=== PATIENT | male | born 1980 | race Caucasian/White ===

== ENCOUNTER 2017-03-28 18:41 | Inpatient (IN) ==
[2017-03-28] MEDS ORDERED: Ipratropium/Albuterol Neb 3 ML IH ONE (18:48)
[2017-03-28] MEDS ORDERED: Magnesium Sulfate 1 GM in D5% in Water 100 ML IVPB ONE ×2 (18:49→19:45)
[2017-03-28] MEDS ORDERED: *HR* LORazepam 2 MG/ML VIAL IVP ONE (18:49)
--- NOTE | 2017-03-28 19:08 | Emergency Department Note ---
Disposition Clinical Impression: Asthma with exacerbation Qualifiers: Asthma severity: moderate Asthma persistence: unspecified Qualified Code(s): J45.901 - Unspecified asthma with (acute) exacerbation Disposition: Admitted As Inpatient Condition: Good Referrals: NONE,PCP [Primary Care Provider] - Forms: ED Satisfaction Letter Time of Disposition: 20:07 General Adult HPI - General Chief complaint: ED Shortness of Breath/Dyspnea Stated complaint: SOB/anxiety Time Seen by Provider: 03/28/17 18:48 Source: patient, EMS Limitations: no limitations Nursing Notes Reviewed: Yes Vital Signs Reviewed: Yes - History of Present Illness HPI Narrative: Patient is a 37-year-old male that presents the emergency department for respiratory symptoms. He states that he has a history of asthma like he is having an asthma attack. He states that he has been having worsening of shortness of breath all day. He states that he has uses inhalers and nebulizers without any relief. Patient came via EMS and received 3 nebulized treatments in the squad and that improved his oxygen saturation. Patient states that he is still feeling like he cannot catch his breath or breathe. He states that this is worse than any other asthma attack that he has ever had. Pain Scale: 6 - Related Data Home Medications Medication Instructions Recorded Confirmed Albuterol Sulfate [Proair HFA] 1 puff IH 11/23/14 11/23/14 Previous Rx's Medication Instructions Recorded Naproxen [Naprosyn] 500 mg PO BID PRN #15 tablet 07/22/16 Azithromycin [Zithromax] 250 - 500 mg PO DAILY #6 tablet 03/19/17 Promethazine/Dextromethorphan 5 ml PO Q4-6H PRN #120 ml 03/19/17 [Promethazine-Dm Syrup] predniSONE [PredniSONE] 40 mg PO DAILY #10 tablet 03/19/17 Allergies Allergy/AdvReac Type Severity Reaction Status Date / Time No Known Drug Allergies Allergy See Verified 07/22/16 09:58 Comments All systems ED: reviewed and negative except as stated. Respiratory: Reports: other (Short of breath, the difficulty breathing) Past Medical History - Past Medical History Medical history: Reports: asthma Psychiatric history: Reports: no psych history - Social History Smoking Status: Former smoker Smokeless Tobacco Status: Yes Alcohol use: Reports: occasionally Drug use: Reports: marijuana Physical Exam - General Limitations: no limitations General appearance: alert, in distress - Head Head exam: atraumatic, normocephalic - Eye Eye exam: Present: normal appearance, EOMI - Neck Neck exam: Present: normal inspection, full ROM, trachea midline - Respiratory Respiratory exam: Present: normal lung sounds bilaterally, wheezes (Wheezes bilaterally), other (Patient appears to be hyperventilating). Absent: respiratory distress - Cardiovascular Cardiovascular exam: Present: normal rhythm, tachycardia, normal heart sounds, + S1, +S2 - Abdominal Exam Abdominal exam: Present: soft, Non-Tender, normal bowel sounds - Neurological Exam Neurological exam: Present: alert, oriented X3 - Psychiatric Psychiatric exam: Present: normal affect, normal mood - Skin Skin exam: Present: warm, dry, intact Course - Reevaluation(s) Reevaluation #1: re-evaluated patient on RA and we dropped to 88% on RA at rest, we will admit to medicine and continue with magensium treatment. Panchito has been informed that he will be admitted to medicine and he is agreeable to plan. Time: 20:07 - Consultations Consultation #1: discssed case with Dr. Luis and he has accepted patient to medicine. Time: 20:30 Vital Signs Temperature 97.4 F L 03/28/17 18:44 Pulse Rate 107 03/28/17 18:44 Respiratory Rate 20 03/28/17 18:44 Blood Pressure 165/103 03/28/17 18:44 O2 Sat by Pulse Oximetry 89 03/28/17 18:44 Temperature 97.4 F L 03/28/17 18:44 Pulse Rate 107 03/28/17 18:44 Respiratory Rate 16 03/28/17 19:39 Blood Pressure 165/103 03/28/17 18:44 O2 Sat by Pulse Oximetry 93 03/28/17 19:39 Oxygen Delivery Oxygen Delivery Nasal Cannula Medical Decision Making - [facility] Narrative Medical decision making narrative: Due to the patient having shortness of breath and difficulty with breathing we will do a CBC, BMP, troponin, x-ray, EKG. The patient will also be giving a breathing treatment, magnesium and a dose of Ativan. Chest x-ray showed no acute process. Patient states that after receiving Ativan he is feeling much better and his breathing has improved. Patient does have an elevated white count of 18,000. This could be due to inflammatory process due to the patient having an exacerbation of his asthma. - Lab Data Lab results reviewed: Yes I reviewed the patient's lab results. Result diagrams: 03/28/17 19:06 03/28/17 19:06 Lab Results 03/28/17 03/28/17 03/28/17 Range/Units 19:06 19:06 19:06 WBC 18.0 H (4.3-11.1) K/mcL RBC 5.61 H (4.19-5.50) M/mcL Hgb 16.8 (12.9-16.9) g/dL Hct 51.0 H (37.5-50.1) % MCV 90.9 (83.0-100.0) fL MCH 29.9 (28.0-33.3) pg MCHC 32.9 (31.6-35.5) g/dL RDW 13.6 (11.5-14.5) % Plt Count 313 (140-400) K/mcL MPV 8.9 L (9.4-12.4) fL Immature Gran % 0.7 (0-4) % Seg Neutrophils % 81.8 % Lymphocytes % 7.7 % Monocytes % 5.8 % Eosinophils % 3.6 % Basophils % 0.4 % Neutrophils # 14.7 H (1.6-8.9) K/mcL Lymphocytes # 1.4 (0.6-4.6) K/mcL Monocytes # 1.1 (0.0-1.3) K/mcL Eosinophils # 0.7 H (0.0-0.6) K/mcL Basophils # 0.1 (0.0-0.2) K/mcL Sodium 143 (136-145) mEq/L Potassium 4.3 (3.5-5.1) mEq/L Chloride 104 (98-107) mEq/L Carbon Dioxide 31 H (23-29) mEq/L BUN 9 (6-20) mg/dL Creatinine 0.90 (0.70-1.30) mg/dL Est GFR ( Amer) > 60 (> 60) Est GFR (Non-Af Amer) > 60 (> 60) BUN/Creatinine Ratio 10 (6-26) Glucose 112 H (70-105) mg/dL Calculated Osmolality 295 (280-300) Calcium 9.8 (8.6-10.3) mg/dL Troponin I < 0.03 (< 0.04) ng/mL - Radiology Data Radiology results reviewed: Yes I reviewed the patient's radiology results. Chest X-Ray 03/28/17 18:48 IMPRESSION: No acute process. D/ / Parveen Luque MD / Parveen Luque MD Interpreting Provider: Parveen Luque MD - EKG Data EKG #1 EKG attestation: Yes I reviewed and interpreted this EKG. EKG results narrative: sinus tachycardia wih rate of 105. NO STEMI. normal inervall. no old ekg
--- NOTE | 2017-03-28 19:19 | Emergency Department Note ---
START Narrative - START START: I examined this patient and my medical decision-making was reviewed with the Resident Physician. I agree with the documented findings, disposition and treatment plan as described except to the extent set forth below. 37 brittany old male present to the ED with astham excbeartion v anxiety attack and hyperventilating and tripoding to the point that he is making himself hypoxic to 83%. He has had 5 breathign treatments and is refusing to wear NC due to his anxiety and through some breathign excercised and coaching he is able to calm down and his oxygenation has increaaed to 96% on 2LNC. He has been treated with steroids by [facility]. We will treat him with magnesium and ativan for therapy. We will do a walk test to test for hypoxia/tachycardia.
[2017-03-28 19:25] LABS: Basophils # 0.1 K/mcL (0.0-0.2); Basophils % 0.4 %; Eosinophils # 0.7 K/mcL (0.0-0.6); Eosinophils % 3.6 %; Hemoglobin 16.8 g/dL (12.9-16.9); Immature Granulocytes % 0.7 % (0-4); Lymphocytes # 1.4 K/mcL (0.6-4.6); Lymphocytes % 7.7 %; Mean Corpuscular HGB Conc 32.9 g/dL (31.6-35.5); Mean Corpuscular Hemoglobin 29.9 pg (28.0-33.3); Mean Corpuscular Volume 90.9 fL (83.0-100.0); Mean Platelet Volume 8.9 fL (9.4-12.4); Monocytes # 1.1 K/mcL (0.0-1.3); Monocytes % 5.8 %; Neutrophils # 14.7 K/mcL (1.6-8.9); Platelet Count 313 K/mcL (140-400); Red Blood Count 5.61 M/mcL (4.19-5.50); Red Cell Distribution Width 13.6 % (11.5-14.5); Segmented Neutrophils % 81.8 %
[2017-03-28 19:41] LABS: BUN/Creatinine Ratio 10 (6-26); Blood Urea Nitrogen 9 mg/dL (6-20); Calcium 9.8 mg/dL (8.6-10.3); Carbon Dioxide 31 mEq/L (23-29); Chloride 104 mEq/L (98-107); Glucose 112 mg/dL (70-105); Osmolality,Calculated 295 (280-300); Potassium 4.3 mEq/L (3.5-5.1); Sodium 143 mEq/L (136-145); eGFR For African Americans > 60 (> 60); eGFR For Non-African Americans > 60 (> 60)
[2017-03-28] MEDS ORDERED: Levofloxacin 750 MG/150 ML 750 MG/150 ML BAG IVPB ONE (20:07)
[2017-03-28] MEDS ORDERED: Ondansetron 4 MG/2 ML VIAL IVP PRN (23:03)
[2017-03-28] MEDS ORDERED: Naloxone 0.4 MG/ML INJ IVP PRN (23:03)
[2017-03-28] MEDS ORDERED: Ipratropium/Albuterol Neb 3 ML IH PRN (23:04)
[2017-03-28] MEDS: Ipratropium/Albuterol Neb 3 ML IH SCH (23:34)
[2017-03-29] MEDS: MethylPREDNISolone 40 MG/ML VIAL IVP SCH ×4 (00:30→22:40)
--- NOTE | 2017-03-29 00:43 | Internal Med History&Physical ---
Date of Encounter: 03/29/17 Time of Encounter: 00:10 Assessment and Plan (1) Asthma with exacerbation Current visit: Yes Status: Acute Acute respiratory distress secondary to asthma exacerbation continue IV steroids, bronchodilator support, O2 supplementation empiric abx obtain respiratory viral panel will closely monitor O2 saturation Ativan 1mg IV prn severe anxiety Qualifiers: Asthma severity: moderate Asthma persistence: unspecified Qualified Code( s): J45.901 - Unspecified asthma with (acute) exacerbation (2) DVT prophylaxis Current visit: Yes Status: Acute heparin SQ early ambulation Internal Medicine - H&P: HPI Chief complaint: shortness of breath Admitted From: Home Plans for Post Hospital Care: Home History of present illness: Mr. Smith is a 37 year old male with PMH of asthma who presented to the ER for worsening shortness of breath. Pt reports of recently being treated for URI/Flu and finished a course of abx and steroids four days ago. Pt states he woke up this morning with chest congestion and difficulty breathing. He did not get any relief from his rescue inhalers which prompted his visit to the ER. In the ER, he was noted to be hypoxic, requiring O2 supplementation. He was also noted to be severely anxious and hyperventilating, which worsened his symptoms. He received ativan 1mg IV, Solumedrol 125mg IV, O2 support, duonebs which improved his symptoms. He is currently saturating well on 4L NC, reports improvement in his symptoms since arrival to the hospital. Pt is not on home oxygen. Denies any fever, chills, or cough at this time. Social Hx: Former smoker Past Med Surg Social Fam HX - Past Medical History Medical history: asthma Psychiatric history: no psych history - Social History Smoking Status: Former smoker Smokeless Tobacco Status: Yes Alcohol use: occasionally Drug use: marijuana - Family History Mother Living Status: Still Living Hx Family Respiratory Disorders: Yes (COPD, emphysema) Internal Medicine - H&P: Meds Albuterol Sulfate [Proair HFA] 2 puff IH Q2-4H PRN 11/23/14 [History] 3 Allergy/AdvReac Type Severity Reaction Status Date / Time No Known Drug Allergies Allergy See Verified 07/22/16 09:58 Comments All Systems PM: A 10-system review of systems was performed and is negative for pertinent findings except as documented above in the HPI. - Constitutional Constitutional: as per HPI - Constitutional Vitals: Temp Pulse Resp BP Pulse Ox 97.8 F 110 20 102/97 93 03/28/17 23:06 03/28/17 23:06 03/28/17 23:35 03/28/17 23:06 03/28/17 23:35 General appearance: Present: A&O X 3, no acute distress, answers questions appropriately - Head Head exam: Present: atraumatic, normocephalic - Eye Eye exam: Present: conjuntiva pink, sclera anicteric - Respiratory Respiratory exam: Absent: respiratory distress, wheezes (decreased breath sounds , equal air entry bilaterally ) - Cardiovascular Cardiovascular exam: Present: +S1, +S2, tachycardia. Absent: diastolic murmur, systolic murmur - GI/Abdominal GI/Abdominal exam: Present: normal bowel sounds, soft, no peritoneal signs. Absent: distended, tenderness - Extremities Exam Extremities exam: Present: warm, radial pulses palpable and symmetrical. Absent : calf tenderness, cyanotic, pedal edema - Neurological Exam Neurological exam: Present: alert, oriented X3 Internal Med - H&P Results - Labs CBC & Chem 7: 03/28/17 19:06 03/28/17 19:06
[2017-03-29] MEDS: Ipratropium/Albuterol Neb 3 ML IH SCH ×5 (03:58→20:20)
[2017-03-29 04:50] LABS: Adenovirus Not Detected (Not Detect); Bordetella Pertussis Not Detected (Not Detect); Chlamydophila pneumoniae Not Detected (Not Detect); Coronavirus 229E Not Detected (Not Detect); Coronavirus HKU1 Not Detected (Not Detect); Coronavirus NL63 Not Detected (Not Detect); Coronavirus OC43 Not Detected (Not Detect); Human Metapneumovirus Not Detected (Not Detect); Human Rhinovirus/Enterovirus Not Detected (Not Detect); Influenza A Subtype 2009 H1 Not Detected (Not Detect); Influenza A Untypeable Not Detected (Not Detect); Influenza B Not Detected (Not Detect); Mycoplasma pneumoniae Not Detected (Not Detect); Parainfluenza Virus 1 Not Detected (Not Detect); Parainfluenza Virus 2 Not Detected (Not Detect); Parainfluenza Virus 3 Not Detected (Not Detect); Parainfluenza Virus 4 Not Detected (Not Detect); Respiratory Syncytial Virus Not Detected (Not Detect)
[2017-03-29 05:11] LABS: Basophils % 0.3 %; Eosinophils % 0.1 %; Hematocrit 47.4 % (37.5-50.1); Hemoglobin 15.6 g/dL (12.9-16.9); Immature Granulocytes % 0.4 % (0-4); Lymphocytes # 0.5 K/mcL (0.6-4.6); Lymphocytes % 7.2 %; Mean Corpuscular HGB Conc 32.9 g/dL (31.6-35.5); Mean Corpuscular Hemoglobin 29.5 pg (28.0-33.3); Mean Corpuscular Volume 89.6 fL (83.0-100.0); Mean Platelet Volume 9.1 fL (9.4-12.4); Monocytes # 0.1 K/mcL (0.0-1.3); Monocytes % 1.6 %; Neutrophils # 6.8 K/mcL (1.6-8.9); Platelet Count 288 K/mcL (140-400); Red Blood Count 5.29 M/mcL (4.19-5.50); Red Cell Distribution Width 13.8 % (11.5-14.5); Segmented Neutrophils % 90.4 %
[2017-03-29 05:32] LABS: BUN/Creatinine Ratio 14 (6-26); Blood Urea Nitrogen 12 mg/dL (6-20); Calcium 9.5 mg/dL (8.6-10.3); Carbon Dioxide 27 mEq/L (23-29); Chloride 103 mEq/L (98-107); Glucose 140 mg/dL (70-105); Osmolality,Calculated 286 (280-300); Phosphorous 1.4 mg/dL (2.7-4.5); Potassium 4.6 mEq/L (3.5-5.1); Sodium 137 mEq/L (136-145); eGFR For African Americans > 60 (> 60); eGFR For Non-African Americans > 60 (> 60)
[2017-03-29] MEDS: Pantoprazole 40 MG VIAL IVP SCH (06:58)
[2017-03-29] MEDS: *HR* Heparin 5,000 UNIT/ML VIAL SQ SCH ×3 (07:00→22:40)
[2017-03-29] MEDS: Acetaminophen 325 MG TABLET PO PRN ×2 (10:13→16:47)
[2017-03-29] MEDS: cefTRIAXone 1,000 MG in Water for inj. (sterile) 20 ML 10 ML IVPB SCH (11:35)
[2017-03-29] MEDS: *HR* LORazepam 2 MG/ML VIAL IVP PRN (18:06)
[2017-03-29] MEDS ORDERED: levoFLOXacin 750 MG TABLET PO SCH (21:00)
[2017-03-30] MEDS: Ipratropium/Albuterol Neb 3 ML IH SCH ×6 (00:44→20:14)
[2017-03-30] MEDS: *HR* Heparin 5,000 UNIT/ML VIAL SQ SCH ×3 (05:40→21:43)
[2017-03-30] MEDS: Pantoprazole 40 MG VIAL IVP SCH (05:40)
[2017-03-30] MEDS: cefTRIAXone 1,000 MG in Water for inj. (sterile) 20 ML 10 ML IVPB SCH (07:25)
[2017-03-30] MEDS: MethylPREDNISolone 40 MG/ML VIAL IVP SCH ×2 (07:26→15:17)
--- NOTE | 2017-03-30 09:24 | Internal Med Progress Note ---
Date of Encounter: 03/30/17 Time of Encounter: 09:21 - Assessment and plan (1) Asthma with exacerbation Current Visit: Yes Status: Acute Assessment and plan: Acute hypoxic respiratory failure secondary to acute asthma exacerbation with possible acute COPD exacerbation (never diagnosed) provoked by acute bronchitis possibly bacterial Continue Rocephin day 2 Continue Solu-Medrol IV, oxygen therapy and DuoNeb's May require oxygen therapy at home, will pulmonary function tests in 4-6 weeks Qualifiers: Asthma severity: moderate Asthma persistence: unspecified Qualified Code( s): J45.901 - Unspecified asthma with (acute) exacerbation (2) Acute respiratory failure with hypoxia Current Visit: Yes Status: Acute (3) COPD (chronic obstructive pulmonary disease) Current Visit: Yes Status: Acute Qualifiers: COPD type: chronic bronchitis Chronic bronchitis type: simple Qualified Code(s): J41.0 - Simple chronic bronchitis (4) Quit using tobacco in remote past Current Visit: Yes Status: Acute (5) Acute bronchitis Current Visit: Yes Status: Acute Qualifiers: Bronchitis organism: unspecified organism Qualified Code(s): J20.9 - Acute bronchitis, unspecified - Subjective Interval history: Feeling less short of breath, still requiring 4 L of oxygen, tachycardic, denies any chest pain, no fevers, no abdominal pain or dysuria - Constitutional Vitals: Temp Pulse Resp BP Pulse Ox 98.0 F 117 20 124/87 95 03/30/17 07:33 03/30/17 07:33 03/30/17 07:33 03/30/17 07:33 03/30/17 07:33 General appearance: Present: A&O X 3, no acute distress, answers questions appropriately - Head Head exam: Present: atraumatic, normocephalic - Eye Eye exam: Present: PERRL, conjuntiva pink, sclera anicteric Pupils: Present: PERRL - Neck Neck exam general surgery: Present: supple, trachea midline. Absent: lymphadenopathy - Respiratory Respiratory exam: Present: decreased breath sounds, CTAB, wheezes (Minimal diffuse wheezing). Absent: accessory muscle use, rales, rhonchi - Cardiovascular Cardiovascular exam: Present: RRR, +S1, +S2. Absent: diastolic murmur, gallop, rubs, systolic murmur - GI/Abdominal GI/Abdominal exam: Present: normal bowel sounds, soft, no peritoneal signs. Absent: distended, tenderness - Extremities Exam Extremities exam: Present: warm, radial pulses palpable and symmetrical. Absent : calf tenderness, cyanotic, pedal edema - Neurological Exam Neurological exam: Present: CN II-XII intact, oriented X3, no focal deficits. Absent: pronater drift, facial droop, speech deficit - Skin Skin exam: Present: dry, intact Internal Medicine: Result - Labs CBC & Chem 7: 03/29/17 03:45 03/29/17 03:45 Consult Discharge Plan - Plan Referrals: NONE,PCP [Primary Care Provider] -
[2017-03-30] MEDS: *HR* LORazepam 2 MG/ML VIAL IVP PRN (22:04)
[2017-03-31] MEDS: MethylPREDNISolone 40 MG/ML VIAL IVP SCH ×2 (00:30→07:11)
[2017-03-31] MEDS: Ipratropium/Albuterol Neb 3 ML IH SCH ×3 (00:41→07:59)
[2017-03-31] MEDS: Pantoprazole 40 MG VIAL IVP SCH (05:50)
[2017-03-31] MEDS: *HR* Heparin 5,000 UNIT/ML VIAL SQ SCH (05:50)
[2017-03-31] MEDS: cefTRIAXone 1,000 MG in Water for inj. (sterile) 20 ML 10 ML IVPB SCH (07:10)
[2017-03-31 07:38] VITALS: BP 125/75
--- NOTE | 2017-03-31 08:25 | Discharge Summary ---
Date of Encounter: 03/31/17 Time of Encounter: 08:24 - Discharge Diagnosis (1) Asthma with exacerbation Priority: Primary Status: Acute Comments: Acute hypoxic respiratory failure secondary to acute asthma exacerbation with possible acute COPD exacerbation (never diagnosed) provoked by acute bronchitis possibly bacterial Qualifiers: Asthma severity: moderate Asthma persistence: unspecified Qualified Code( s): J45.901 - Unspecified asthma with (acute) exacerbation (2) Acute respiratory failure with hypoxia Priority: Primary Status: Acute (3) COPD (chronic obstructive pulmonary disease) Priority: Primary Status: Acute Qualifiers: COPD type: chronic bronchitis Chronic bronchitis type: simple Qualified Code(s): J41.0 - Simple chronic bronchitis (4) Quit using tobacco in remote past Priority: Secondary Status: Acute (5) Acute bronchitis Priority: Primary Status: Acute Qualifiers: Bronchitis organism: unspecified organism Qualified Code(s): J20.9 - Acute bronchitis, unspecified - Discharge Medications Prescriptions: Amoxicillin/Clavulanate [Augmentin] 875 mg PO BIDWM #10 tablet predniSONE [PredniSONE] 10 mg PO DAILY 18 Days tablet Home Medications: Albuterol Sulfate [Albuterol Inhaler] 2 puff IH Q4-6H PRN 11/23/14 [History] Amoxicillin/Clavulanate [Augmentin] 875 mg PO BIDWM #10 tablet 03/31/17 [Rx] predniSONE [PredniSONE] 10 mg PO DAILY 18 Days tablet 03/31/17 [Rx] Allergies/Adverse Reactions: 3 Allergy/AdvReac Type Severity Reaction Status Date / Time No Known Drug Allergies Allergy See Verified 07/22/16 09:58 Comments Date of admission: 03/30/17 15:06 Primary care physician: PCP NONE - Patient Status Disposition: Home, Self-Care Condition: Good Overall status at discharge: patient is back to baseline - Discharge Instructions Follow Up With: NONE,PCP [Primary Care Provider] - Additional Instructions: Follow-up with a primary care physician within the next 7 days. Taper prednisone. Complete 5 more days of Augmentin. Use rescue inhaler if needed. Needs pulmonary function testing 4-6 weeks, follow-up with the pulmonary service before that time - Diet and Activity Activity: increase activity as tolerated Diet: regular diet Hospital course: Mr. Smith is a 37 year old male ith PMH of asthma who presented to the ER for worsening shortness of breath. Pt reported recently being treated for URI/Flu and finished a course of abx and steroids four days prior to admission. Pt stated he woke up with chest congestion and difficulty breathing. He did not get any relief from his rescue inhalers which prompted his visit to the ER. In the ER, he was noted to be hypoxic, requiring O2 supplementation. He was also noted to be severely anxious and hyperventilating, which worsened his symptoms. He received ativan 1mg IV, Solumedrol IV, O2 support, duonebs which improved his symptoms. Chest x-ray showed no acute process, was started on a high dose of IV steroids, he was in severe respiratory distress. Was started on Rocephin. The patient continued to be very hypoxic the second day of his hospitalization utilizing up to 6 L of oxygen. Today he is much better, not requiring oxygen but somehow tachycardic still. White blood cell count has improved down to 7.5 from initial value of 18. Respiratory viral panel was negative - Time Spent with Patient Total time spent providing and/or coordinating discharge services: Greater than 30 minutes (40 min) - Constitutional Vitals: Temp Pulse Resp BP Pulse Ox 97.8 F 103 16 125/75 94 03/31/17 07:34 03/31/17 07:34 03/31/17 07:59 03/31/17 07:34 03/31/17 07:59 General appearance: Present: A&O X 3, no acute distress, answers questions appropriately - Head Head exam: Present: atraumatic, normocephalic - Eye Eye exam: Present: PERRL, conjuntiva pink, sclera anicteric Pupils: Present: PERRL - Neck Neck exam general surgery: Present: supple, trachea midline. Absent: lymphadenopathy - Respiratory Respiratory exam: Present: CTAB. Absent: accessory muscle use, rales, rhonchi, wheezes - Cardiovascular Cardiovascular exam: Present: RRR, +S1, +S2, tachycardia. Absent: diastolic murmur, gallop, rubs, systolic murmur - GI/Abdominal GI/Abdominal exam: Present: normal bowel sounds, soft, no peritoneal signs. Absent: distended, tenderness - Extremities Exam Extremities exam: Present: warm, radial pulses palpable and symmetrical. Absent : calf tenderness, cyanotic, pedal edema - Neurological Exam Neurological exam: Present: CN II-XII intact, oriented X3, no focal deficits. Absent: pronater drift, facial droop, speech deficit - Skin Skin exam: Present: dry, intact
--- NOTE | 2017-03-31 15:23 | Electrocardiograph Report ---
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
== END 2017-03-31 09:13 | disposition home or self-care (01) | DRG 189 ==
LOC: 2NNU 18:41 → EMEROO 18:41 → 2NNU 22:35 → SUATTDRO 03-30 15:06
PROVIDERS: ADMIT Internal Medicine Hematology & Oncology; ATTEND Internal Medicine